=== PATIENT | male | born 2000 | race Caucasian/White ===

== ENCOUNTER 2020-03-01 13:04 | Emergency (ER) | payer OTHER ==
[~2020-03-01 13:04] MED LIST: LOPERAMIDE 2 MG CAPLET ONE; PANTOPRAZOLE 40MG VIAL (C9113 PER 1) ONE
[2020-03-29 16:07] LABS: HEMATOCRIT 50.6 % (42.0-52.0); HEMOGLOBIN 17.5 g/dl (13.5-17.5); MEAN CORPUSCULAR HEMOGLOBIN 30.9 pg (27.0-33.0); MEAN CORPUSCULAR HGB CONC 34.6 g/dl (32.0-36.5); MEAN CORPUSCULAR VOLUME 89.2 fl (80.0-96.0); PLATELET COUNT, AUTOMATED 235 10^3/uL (150-450); RED BLOOD COUNT 5.67 10^6/uL (4.30-6.10); WHITE BLOOD COUNT 5.4 10^3/uL (4.0-10.0)
[2020-04-14 12:04] LABS: ALBUMIN 3.9 GM/DL (3.2-5.2); ALT/SGPT 20 U/L (12-78); BLOOD UREA NITROGEN 8 MG/DL (7-18); CALCIUM LEVEL 9.4 MG/DL (8.5-10.1); CARBON DIOXIDE LEVEL 28 MEQ/L (21-32); CHLORIDE LEVEL 108 MEQ/L (98-107); CREATININE FOR GFR 0.86 MG/DL (0.70-1.30); GLUCOSE, FASTING 90 MG/DL (70-100); LIPASE 51 U/L (73-393); POTASSIUM SERUM 4.4 MEQ/L (3.5-5.1); SODIUM LEVEL 139 MEQ/L (136-145); TOTAL PROTEIN 7.4 GM/DL (6.4-8.2)
--- NOTE | 2020-04-20 11:27 | REP ---
ABDOMEN SERIES: TWO VIEWS HISTORY: Unavailable. Report is delayed due to a malware attack on this facility. FINDINGS: Supine and upright views of the abdomen demonstrate a normal bowel gas pattern. Psoas margin and flank stripes are intact. No mass, organomegaly, or pathologic calcifications are appreciated. There is no evidence of free air. No significant air fluid level on the upright radiograph. IMPRESSION: Unremarkable abdominal films. MTDD
== END 2020-03-01 15:00 | disposition home or self-care (01) ==
LOC: M ED 13:04
DX: R19.7 Diarrhea, unspecified (principal); R10.9 Unspecified abdominal pain; R11.0 Nausea
CPT/HCPCS: 74019; 80053; 83690; 85027; 87507; 96374; 99284; C9113

== ENCOUNTER → 2020-08-22 | Outpatient (CLI) | payer OTHER | LOC: M LABSMTC 12:06 | PROVIDERS: ATTEND Family Medicine | DX: Z20.822 Contact with and (suspected) exposure to COVID-19 (principal) ==

== ENCOUNTER 2022-04-26 09:42 | Emergency (ER) | payer OTHER ==
[~2022-04-26] VITALS: Ht 172.7 cm; Wt 98.7 kg
[2022-04-26 09:43] VITALS: BP 143/79
== END 2022-04-26 10:55 | disposition home or self-care (01) ==
LOC: M ED 09:42
DX: M25.512 Pain in left shoulder (principal); R51.9 Headache, unspecified; V48.5XXA Car driver injured in noncollision transport accident in traffic accident, initial encounter; J45.909 Unspecified asthma, uncomplicated; F17.200 Nicotine dependence, unspecified, uncomplicated